=== PATIENT | male | born 1975 | race Two or more races ===

== ENCOUNTER 2021-06-08 21:11 | Emergency (ER) | payer SELFPAY ==
[2021-06-08] MEDS ORDERED: Alum Hydrox/Mag Hydrox/Simeth 30 ML, Lidocaine 2% 15 ML PO ONE ×2 (21:41)
--- NOTE | 2021-06-08 23:11 | EDM.PDOC ---
ED HPI GENERAL MEDICAL PROBLEM - General Chief Complaint: Chest Pain Stated Complaint: CHEST PAIN Time Seen by Provider: 06/08/21 21:29 Source of Information: Reports: Patient History Limitations: Reports: No Limitations - History of Present Illness INITIAL COMMENTS - FREE TEXT/NARRATIVE: Patient is a 45-year-old male who is complaining of having chest pain which woke him up from sleep this morning is continued on all day. He describes this as a heaviness and rates it as 5 out of 10 in intensity. It is not worse with exertion. Patient actually feels better when he is walking around and doing activity. He denies being short of breath is slightly nauseous at times has had no vomiting and denies any diaphoresis. Patient has not had similar symptoms in the past. He states one of his meals today did make his pain symptoms worse. He denies any bloody or tarry looking stools. He is taking nothing for his current symptoms. He is not a cigarette smoker and denies using any street drugs. Onset: Today Duration: Waxing/Waning Location: Reports: Chest Quality: Reports: Dull, Pressure Severity: Moderate Improves with: Reports: Movement Worsens with: Reports: Eating Associated Symptoms: Reports: No Other Symptoms Chest Pain Score (Numeric/FACES): 8 - Related Data Allergies Allergy/AdvReac Type Severity Reaction Status Date / Time morphine Allergy Itching Verified 06/08/21 21:46 Home Meds: Home Meds ALPRAZolam [Xanax] 06/08/21 [History] Acetaminophen/HYDROcodone [HYDROcodone-Acetaminophen 5-525 MG *] 06/08/21 [History] Sucralfate [Carafate] 1 gm PO Q6HR PRN #60 tab 06/08/21 [Rx] lisinopriL [Lisinopril] 06/08/21 [History] ED ROS GENERAL - Review of Systems Review Of Systems: Comprehensive ROS is negative, except as noted in HPI. ED EXAM, GENERAL - Physical Exam Exam: See Below Exam Limited By: No Limitations General Appearance: Alert, No Apparent Distress Head: Normocephalic Neck: Supple, Full Range of Motion Respiratory/Chest: No Respiratory Distress, Lungs Clear, Normal Breath Sounds Cardiovascular: Regular Rate, Rhythm, No Edema, No JVD GI/Abdominal: Normal Bowel Sounds, Soft, Non-Tender, No Distention Back Exam: Normal Inspection. No: CVA Tenderness (L), CVA Tenderness (R) Extremities: Normal Inspection, No Pedal Edema Neurological: Alert, Oriented Psychiatric: Normal Affect Skin Exam: Warm, Dry, Normal Color Lymphatic: No Adenopathy #1 Interpretation Rhythm: NSR P-Wave: Present QRS: Normal ST-T: Normal Comparison: NA - No Prior EKG EKG Interpretation Comments: All sinus rhythm without any ST or T wave changes. Course - Vital Signs Text/Narrative:: Patient's lab work including D-dimer and troponin are all negative. Since patient's pain symptoms started greater than 12 hours prior to arrival I feel this is a negative cardiac finding. Patient feels much better with GI cocktail. I feel his findings are much more likely esophagitis or reflux disease. I will give him a prescription for Carafate and recommending he take some Prilosec and antiacids as needed. Low-fat nonfat diet as tolerated. Return to ER if symptoms are worse. Follow-up with his PCP for GI referral if his symptoms continue. Last Recorded V/S: Last Vital Signs Temp 98.2 F 06/08/21 21:26 Pulse 70 06/08/21 21:26 Resp 18 06/08/21 21:26 BP 136/87 06/08/21 21:26 Pulse Ox 100 06/08/21 21:26 - Orders/Labs/Meds Orders: Active Orders 24 hr Category Date Time Status EKG Documentation Completion [RC] ASDIRECTED Care 06/08/21 21:46 Active Labs: Laboratory Tests 06/08/21 06/08/21 06/08/21 Range/Units 21:55 21:55 21:55 WBC 6.22 (4.23-9.07) K/mm3 RBC 4.96 (4.63-6.08) M/mm3 Hgb 15.6 (13.7-17.5) gm/dl Hct 44.7 (40.1-51.0) % MCV 90.1 (79.0-92.2) fl MCH 31.5 (25.7-32.2) pg MCHC 34.9 (32.2-35.5) g/dl RDW Std Deviation 42.7 (35.1-43.9) fL Plt Count 327 (163-337) K/mm3 MPV 8.4 L (9.4-12.3) fl Neutrophils % (Manual) 55 (40-60) % Band Neutrophils % 0 (0-10) % Lymphocytes % (Manual) 35 (20-40) % Atypical Lymphs % 0 % Monocytes % (Manual) 4 (2-10) % Eosinophils % (Manual) 6 (0.8-7.0) % Basophils % (Manual) 0 L (0.2-1.2) Platelet Estimate Adequate RBC Morph Comment Normal D-Dimer, Quantitative 0.23 (0.19-0.50) mg/L Sodium 142 (136-145) mEq/L Potassium 3.6 (3.5-5.1) mEq/L Chloride 105 (98-107) mEq/L Carbon Dioxide 26 (21-32) mEq/L Anion Gap 14.6 (5-15) BUN 11 (7-18) mg/dL Creatinine 0.9 (0.7-1.3) mg/dL Est Cr Clr Drug Dosing TNP Estimated GFR (MDRD) > 60 (>60) mL/min BUN/Creatinine Ratio 12.2 L (14-18) Glucose 101 H (70-99) mg/dL Calcium 9.0 (8.5-10.1) mg/dL Total Bilirubin 0.4 (0.2-1.0) mg/dL AST 19 (15-37) U/L ALT 51 (16-63) U/L Alkaline Phosphatase 72 (46-116) U/L Troponin I < 0.017 (0.00-0.056) ng/mL Total Protein 7.4 (6.4-8.2) g/dl Albumin 4.2 (3.4-5.0) g/dl Globulin 3.2 gm/dL Albumin/Globulin Ratio 1.3 (1-2) Lipase (73-393) U/L 06/08/21 Range/Units 21:55 WBC (4.23-9.07) K/mm3 RBC (4.63-6.08) M/mm3 Hgb (13.7-17.5) gm/dl Hct (40.1-51.0) % MCV (79.0-92.2) fl MCH (25.7-32.2) pg MCHC (32.2-35.5) g/dl RDW Std Deviation (35.1-43.9) fL Plt Count (163-337) K/mm3 MPV (9.4-12.3) fl Neutrophils % (Manual) (40-60) % Band Neutrophils % (0-10) % Lymphocytes % (Manual) (20-40) % Atypical Lymphs % % Monocytes % (Manual) (2-10) % Eosinophils % (Manual) (0.8-7.0) % Basophils % (Manual) (0.2-1.2) Platelet Estimate RBC Morph Comment D-Dimer, Quantitative (0.19-0.50) mg/L Sodium (136-145) mEq/L Potassium (3.5-5.1) mEq/L Chloride (98-107) mEq/L Carbon Dioxide (21-32) mEq/L Anion Gap (5-15) BUN (7-18) mg/dL Creatinine (0.7-1.3) mg/dL Est Cr Clr Drug Dosing Estimated GFR (MDRD) (>60) mL/min BUN/Creatinine Ratio (14-18) Glucose (70-99) mg/dL Calcium (8.5-10.1) mg/dL Total Bilirubin (0.2-1.0) mg/dL AST (15-37) U/L ALT (16-63) U/L Alkaline Phosphatase (46-116) U/L Troponin I (0.00-0.056) ng/mL Total Protein (6.4-8.2) g/dl Albumin (3.4-5.0) g/dl Globulin gm/dL Albumin/Globulin Ratio (1-2) Lipase 74 (73-393) U/L Meds: Medications Discontinued Medications Generic Name Dose Route Start Last Admin Trade Name Freq PRN Reason Stop Dose Admin Al Hydroxide/Mg Hydroxide 30 0 ml 06/08/21 21:41 06/08/21 21:51 ml/ Lidocaine HCl 15 ml PO 06/08/21 21:42 45 ml ONETIME ONE Administration Departure - Departure Time of Disposition: 23:15 Disposition: Home, Self-Care 01 Condition: Good Clinical Impression: Esophagitis Instructions: Nonspecific Chest Pain, Adult, [id number], Esophagitis Referrals: PCP,Not In Area [Primary Care Provider] - Additional Instructions: Carafate as prescribed. Low-fat nonfat diet. As prescribed. Prilosec for the next 2 to 4 weeks. Antacids as needed. Return to ER if worse. Follow-up with PCP if symptoms continue. Sepsis Event Note (ED) - Evaluation Sepsis Screening Result: No Definite Risk - Focused Exam Vital Signs: Vital Signs Temp Pulse Resp BP Pulse Ox 06/08/21 21:26 98.2 F 70 18 136/87 100 - My Orders Last 24 Hours: My Active Orders 06/08/21 21:46 EKG Documentation Completion [RC] ASDIRECTED - Assessment/Plan Last 24 Hours: My Active Orders 06/08/21 21:46 EKG Documentation Completion [RC] ASDIRECTED
== END 2021-06-08 23:33 | disposition home or self-care (01) ==
LOC: JD.ED 21:11
DX: K20.90 Esophagitis, unspecified without bleeding (principal); Z88.5 Allergy status to narcotic agent; Z79.899 Other long term (current) drug therapy
CPT/HCPCS: 36415; 80053; 83690; 84484; 85007; 85027; 85379; 93005; 99285; A9270; 99283